=== PATIENT | male | born 1975 ===

== ENCOUNTER → 2016-12-13 | Outpatient (REF) ==
--- NOTE | 2016-12-13 10:24 | DI ---
EXAM: Chest two view, frontal and lateral views. HISTORY: Employment screening. COMPARISON: 12/24/2015. FINDINGS: The heart size is normal. There is no pulmonary vascular congestion. The lungs are aj r. No pleural effusion or pneumothorax is seen. No acute osseous abnormality identified. Clips see n in the upper abdomen. Since the prior study, there has been no significant interval change. IMPRESSION: No acute cardiopulmonary process.
== END ==
LOC: RAD 09:48
DX: Z02.89 Encounter for other administrative examinations (principal)